=== PATIENT | female | born 1955 | race Caucasian/White ===

== ENCOUNTER 2017-10-01 00:46 | Inpatient (IN) | payer BC ==
[~2017-10-01] VITALS: Ht 170.2 cm; Wt 61.4 kg
[2017-10-01] VITALS (7 sets, daily range): BP systolic 118–163; BP diastolic 44–80
[~2017-10-01 00:46] MED LIST: CHOLINE PO; FERROUS SULFAT325 M2 PO; LEVOTHYROXIN0.075 M1 PO; MULTI-VITAMIN1 EACH PO
[2017-10-01] MEDS ORDERED: LISINOPRIL 10MG10 MG PO (00:55)
[2017-10-01] MEDS ORDERED: MAXZIDE 25 MG-31 TA1 PO (00:55)
[2017-10-01 01:06] LABS: HEMOGLOBIN 13.3 g/dL (12.2-16.2); LYMPH # 0.8 K/mm3 (0.7-4.5)
--- NOTE | 2017-10-01 01:26 | Emergency Room Report ---
History of Present Illness Time Seen by [id number] Presenting Problem in Triage Pt arrived:Walked Presenting Problem:C/O PAIN TO UPPER EPIGASTRIC AREA X 1 HOUR. 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 N Clinical Suspician of Infection? N Mental Status: 1 - Regular (Normal Baseline) Sepsis Risk:Low Sepsis Risk Have you (or family members/close friends) recently traveled outside the [place]? N If Yes, where/when: Have you had exposure to infectious disease within the past month? N TB? Other? Specify: Source patient, RN notes reviewed, family, old records Exam Limitations no limitations Comment pt with acute onset of upper abd pain with rad to back - no fever or vomiting and no etoh - Cardiac Chest Pain Chest pain indicative of cardiac No Timing/Duration this evening Severity moderate ALLERGIES Coded Allergies: Iodinated Contrast- Oral and IV Dye (Iodinated Contrast Media - IV Dye) (Severe, 10/18/15) Vodka (Severe, 03/24/11) Home Medications Reported Medications Levothyroxine Sodium (Levothyroxine 0.075MG) 0.05 MG PO DAILY LISINOPRIL (Lisinopril) 10 MG PO DAILY TRIAMTERENE/HYDROCHLOROTHIAZID (Maxzide 37.5 MG-25 MG Tablet) 1 TAB PO DAILY History Medical History General CAD? No Angina: Yes PA: No Hypertension? No Hyperlipidemia? Yes CHF? No DVT? No PE? No COPD? No Asthma? No Anemia? No GERD? No Gastric ulcers? No GI Bleed? No Hernia? No Thyroid Problems? Yes Hypothyroidism? Yes CVA? No Seizures? No Diabetes? No Renal Insuffiency? No End Stage Renal Disease? No UTI? Yes Stones? Yes BPH? No GB Disease: Yes Nephritic Syndrome? No Asplenia? No Hepatitis? No Sickle Cell Disease? No Arthritis? No Migraines? No Cataracts? No Glaucoma? No MRSA? No HIV? No TB? No Anxiety? No Depression? No Cancer? No More? No Immunization Hx DT/Tetanus UNKNOWN Flu 2YRSorMore Pneumonia NEVER Surgical Hx Previous Surgery?Y Tubal Ligation Gallbladd Hysterect HEART CATH 2006? Family History Family Hx Diabetes Yes CAD Yes Hypertension No Hyperlipidemia No Cancer No TB No Social History Smoking Hx Smoker: Former Smoker Tobacco: No Type N/A Alcohol Alcohol: No Drugs none Review of Systems All Other Systems Reviewed and Negative Constitutional denies fever Eyes denies drainage ENT denies: ear discharge, epistaxis, throat pain. Respiratory denies cough, denies shortness of breath, denies wheezing Cardiovascular denies chest pain, denies syncope Gastrointestinal see HPI, abdominal pain, diarrhea, nausea, vomiting Genitourinary denies: dysuria, frequency, hesitancy, hematuria. Musculoskeletal denies back pain, denies joint pain, denies joint swelling, denies neck pain Skin denies rash Psychiatric/Neurological denies headache, denies seizure Physical Exam Vital Signs Vital Signs Date Time Temp Pulse Resp B/P Pulse O2 O2 Flow FiO2 Ox Delivery Rate 10/01 0337 69 20 144/89 99 10/01 0248 73 20 152/65 99 10/01 0203 71 20 145/58 97 10/01 0119 69 20 127/58 96 10/01 0113 20 10/01 0048 98.3 74 18 163/80 98 - WBC >12,000 or <4,000 or 10% bands? 2 or more SIRS Criteria Met? B/P:144/89 MAP:107 Creatinine >2.0? UA output<0.5ml/kg/hr for 2 hrs? Platelet count >100,000? Lactate >2.0mmol/1? INR >1.2 or PTT > than 60 sec? Evidence of Organ Dysfunction? Provider documented clinical suspician of infection? N Sepsis Criteria Count: 0 Sepsis Risk: Low Sepsis Risk General Appearance no apparent distress Eye Exam - bilateral eye PERRL, bilateral eye EOMI Ear, Nose, Throat normal ENT inspection Neck supple Respiratory Status No: respiratory distress. Lung Sounds bilateral: lungs clear. Cardiovascular regular rate/rhythm, systolic murmur Peripheral Pulses Pulses normal Yes Gastrointestinal soft, no organomegaly, no pulsatile mass, no guarding, no rebound, tenderness Back no CVA tenderness Extremities normal inspection, no calf tenderness Strength 4 Upper Ext (L), 4 Upper Ext (R), 4 Lower Ext (L), 4 Lower Ext (R) Neurologic alert, evening sitter II-XII nml as tested, no motor/sensory deficits Reflexes Reflexes normal No Mental status normal mood/affect Skin no rash cons.w/shingles Medical Decision Making LABS/Meds/Orders Pt receiving controlled substance in ED? No Results/Orders Laboratory Tests 10/01/1749: Creatine Kinase 148, CK-MB (CK-2) Rel Index 0.5, CK and CKMB Interp 0.8, Troponin I < 0.02 10/01/170: Sodium 140, Potassium 3.7, Chloride 106, Carbon Dioxide 28, BUN 15, Creatinine 0.9, Estimated Creat Clear 66, Estimated GFR (MDRD) 63, Glucose 115 H, Calcium 9.4, Total Bilirubin 1.0, AST 59 H, ALT 45, Alkaline Phosphatase 105, Total Protein 7.5, Albumin 4.1, Globulin 3.4 H, Albumin/Globulin Ratio 1.2, Amylase 54, Lipase 789 H, WBC 4.8, RBC 4.83, Hgb 13.3, Hct 40.2, MCV 83.4, RDW 14.0, Plt Count 212, MPV 7.7, Gran % 73.9, Gran # 3.6, Lymphocytes % 17.0, Monocytes % 6.2, Eosinophils % 2.4, Basophils % 0.5, Lymphocytes # 0.8, Monocytes # 0.3, Eosinophils # 0.1, Basophils # 0.0, PUBS MCHC 33.0, MCH 27.5 Current Medication Orders Sig/Ramez Start time Last Medication Dose Route Stop Time Status Admin Sodium Chloride 50 ML .STK-MED ONE 10/01 334 DC IV Metronidazole 100 ML .STK-MED ONE 10/01 333 DC IV Levofloxacin/Dextrose 150 ML .STK-MED ONE 10/01 332 DC IV Promethazine HCl 0 .STK-MED ONE 10/01 332 DC .ROUTE Morphine Sulfate 0 .STK-MED ONE 10/01 331 DC .ROUTE Levofloxacin/Dextrose 150 ML ONCE ONE 10/01 330 r IV 10/01 459 Metronidazole 100 ML ONCE ONE 10/01 330 AC IV 10/01 429 Morphine Sulfate 4 MG ONCE ONE 10/01 330 DC IV 10/01 331 Morphine Sulfate 0 .STK-MED ONE 10/01 330 DC .ROUTE Promethazine HCl 12.5 MG ONCE ONE 10/01 330 DC IV 11/01 0331 Sodium Chloride 25 ML ONCE ONE 10/01 0330 AC IV 10/01 0344 Famotidine 0 .STK-MED ONE 10/01 0130 DC IV Metoclopramide HCl 0 .STK-MED ONE 10/01 0129 DC .ROUTE Famotidine 20 MG ONCE ONE 10/01 0115 DC 10/01 IV 10/01 011 0131 Metoclopramide HCl 10 MG ONCE ONE 10/01 0115 DC 10/01 IVP 10/01 011 013 Sodium Chloride 8 ML ONCE ONE 10/01 011 DC 10/01 IV 10/01 011 0131 Ondansetron HCl 0 .STK-MED ONE 10/01 010 DC .ROUTE Sodium Chloride 1,000 ML .STK-MED ONE 10/01 010 DC IV Ketorolac 0 .STK-MED ONE 10/01 010 DC Tromethamine .ROUTE Ketorolac 30 MG ONCE ONE 10/01 010 DC 10/01 Tromethamine IV 10/01 010 0113 Ondansetron HCl 4 MG ONCE ONE 10/01 010 DC 10/01 IV 10/01 0101 0110 Sodium Chloride 10 ML PRN PRN 10/01 0100 AC IV 10/02 0057 Sodium Chloride 1,000 ML .Q1H1M 10/01 010 DC 10/01 IV 10/01 0200 0110 Sodium Chloride 10 ML PRN PRN 10/01 0100 AC IV 10/02 0058 Orders Procedure Date/time Status DIET-NOTHING BY MOUTH 10/01 B Active Decision to admit 10/[address] ABD & PELVIS W/O CONTRAST 10/01 115 Active CARDIAC ENZYMES 10/01 111 Complete 12 LEAD EKG-VERONICA (INITIAL) 10/01 59 Active ELECTROCARDIOGRAM REQUEST 10/[address] ABD/PELVIS REQ 10/01 59 Complete CHEST(2 VIEWS-NOT PORTABLE) 10/01 59 Active IV SALINE LOCK 10/01 005 Active LIPASE 10/01 005 Complete CBC WITH AUTO DIFF 10/01 59 Complete CHEM 12 PROFILE 10/01 59 Complete AMYLASE 10/01 59 Complete CM/EKG CM/community organization worker Rhythm Normal Sinus Rhythm EKG non-spec. ST/Twave chgs XRAY/CT/US XRAY/CT/US 1 XRAY chest XR interpretation by reviewed by me Xray Results normal/NAD XRAY/CT/US 2 CT abdomen, pelvis CT interpretation by discussed w/radiologist Time results known: 339 CT Results abnormal (see report) Departure Departure Time of Disposition 032 Disposition Still a Patient Clinical Impression Primary Impression: Pancreatitis, acute Qualifiers: Pancreatitis type: unspecified pancreatitis type Acute pancreatitis complication: unspecified Qualified Code: K85.90 - Acute pancreatitis without necrosis or infection, unspecified Secondary Impressions: Diverticulitis Qualifiers: Diverticulitis site: large intestine Diverticulitis bleeding: without bleeding Diverticulitis complication: without perforation or abscess Qualified Code: K57.32 - Diverticulitis of large intestine without perforation or abscess without bleeding Condition STABLE Referrals Qasim Olivera MD (Family) discussed with dr chrissy MARRERO Critical Care Critical Care No at [phone]
--- OUTSIDE RECORDS SUMMARY | 2017-10-01 01:43 | External Medical Summary Rpt ---
Author Author [facility] [employer]ong, [employer] Organization [employer] Address Unknown Phone Unavailable
--- OUTSIDE RECORDS SUMMARY | 2017-10-01 01:43 | External Medical Summary Rpt | CCD ---
Author Author [employer] Organization [employer] Address Unknown Phone Unavailable Purpose Continuity of Care Document - through 2016
--- OUTSIDE RECORDS SUMMARY | 2017-10-01 01:43 | External Medical Summary Rpt | CCD ---
Author Author [facility] Address Unknown Phone Purpose Continuity of Care Document - through 2016
--- OUTSIDE RECORDS SUMMARY | 2017-10-01 01:43 | External Medical Summary Rpt | CCD ---
Demographics Preferred Language Turkmen Marital Status Unknown Jew Affiliation Unknown Race Unknown Ethnic Group Unknown Author Author , MAITE ARORA Address Unknown Phone Immunization Unable to retrieve immunization data due to connection failure with Immunization Registry. Please try again later.
--- OUTSIDE RECORDS SUMMARY | 2017-10-01 01:43 | External Medical Summary Rpt | CCD ---
Demographics Preferred Language Kiswahili Marital Status Unknown Yazidism Affiliation Unknown Race Unknown Ethnic Group Unknown Author Author , MAITE ARORA Address Unknown Phone Immunization Unable to retrieve immunization data due to connection failure with Immunization Registry. Please try again later.
--- OUTSIDE RECORDS SUMMARY | 2017-10-01 03:37 | External Medical Summary Rpt | CCD ---
Author Author [facility] Address Unknown Phone Purpose Continuity of Care Document - 10-01-2017 through 2016
--- OUTSIDE RECORDS SUMMARY | 2017-10-01 03:38 | External Medical Summary Rpt | CCD ---
Demographics Preferred Language German Marital Status Unknown Orthodox Affiliation Unknown Race Unknown Ethnic Group Unknown Author Author , MAITE ARORA Address Unknown Phone Immunization Unable to retrieve immunization data due to connection failure with Immunization Registry. Please try again later.
--- OUTSIDE RECORDS SUMMARY | 2017-10-01 03:38 | External Medical Summary Rpt ---
Author Author [employer], [employer] Organization [employer] Address Unknown Phone Unavailable Results Amylase [Enzymatic activity/volume] in Serum or Plasma Observa Value Referen Units Interpr Notes Date tion ce etation Range Amylase 25 - 115 U/L Normal No Oct 01 [Enzymati informati 2017 c on in 12:50 AM activity/ source volume] data in Serum or Plasma Comprehensive metabolic 2000 panel in Serum or Plasma Observa Value Referen Units Interpr Notes Date tion ce etation Range Albumin/G 1.1 - 1.8 No Normal No Oct 01 lobulin informati informati 2016 [Mass on in on in 12:50 AM ratio] in source source Serum or data data Plasma Albumin 3.4 - 5.0 gm/dL Normal No Oct 01 [Mass/vol informati 2016 ume] in on in 12:50 AM Serum or source Plasma data Alkaline 46 - 116 U/L Normal No Oct 01 phosphata informati 2017 se on in 12:50 AM [Enzymati source c data activity/ volume] in Serum or Plasma Bilirubin 0.2 - 1.0 mg/dL Normal No Oct 01 .total informati 2016 [Mass/vol on in 12:50 AM ume] in source Serum or data Plasma Urea 7 - 18 mg/dL Normal No Oct 01 nitrogen informati 2016 [Mass/vol on in 12:50 AM ume] in source Serum or data Plasma Calcium 8.5 - mg/dL Normal No Oct 01 [Mass/vol 10.1 informati 2017 ume] in on in 12:50 AM Serum or source Plasma data Chloride 98 - 107 mmoL/L Normal No Oct 01 [Moles/vo informati 2017 lume] in on in 12:50 AM Serum or source Plasma data Carbon 21.0 - mmoL/L Normal No Oct 01 dioxide, 32.0 informati 2017 total on in 12:50 AM [Moles/vo source lume] in data Serum or Plasma Creatinin 0.55 - mg/dL Normal No Oct 01 e 1.02 informati 2017 [Mass/vol on in 12:50 AM ume] in source Serum or data Plasma Creatinin 50 - 200 ML/MIN Normal No Oct 1 e renal informati 2016 clearance on in 12:50 AM source predicted data by Cockcroft -Gault formula Estimated 59- ML/MIN No REFERENCE Nov informati RANGE: 2017 glomerula on in >60 12:50 AM r source ML/MIN/1. filtratio data 73 SQUARE n rate METERSIf (GF this patient is -A merican, then multiply theresult by 1.210. Globulin 1.3 - 3.2 gm/dL High No Oct 01 [Mass/vol informati 2016 ume] in on in 12:50 AM Serum source data Glucose 74 - 106 mg/dL High No Oct 01 [Mass/vol informati 2016 ume] in on in 12:50 AM Serum or source Plasma data Potassium 3.5 - 5.1 mmoL/L Normal No Oct 01 inform2016 [Moles/vo on in 12:50 AM lume] in source Serum or data Plasma Sodium 136 - 145 mmoL/L Normal No Oct 01 [Moles/vo informati 2016 lume] in on in 12:50 AM Serum or source Plasma data Aspartate 15 - 37 U/L High No Oct 01 inform2016 aminotran on in 12:50 AM sferase source [Enzymati data c activity/ volume] in Serum or Plasma Alanine 12 - 78 U/L Normal No Oct 01 aminotran 2016 sferase on in 12:50 AM [Enzymati source c data activity/ volume] in Serum or Plasma Protein 6.4 - 8.2 gm/dL Normal No Oct 01 [Mass/vol informati 2016 ume] in on in 12:50 AM Serum or source Plasma data Lipase [Enzymatic activity/volume] in Serum or Plasma Observa Value Referen Units Interpr Notes Date tion ce etation Range Lipase 73 - 393 U/L High Oct 01 [Enzymati NOTIFICAT 2016 c ION 12:50 AM activity/ RESULT volume] in Serum or Plasma CBC W Auto Differential panel in Blood Observa Value Referen Units Interpr Notes Date tion ce etation Range Basophils 0 - 0.2 K/MM3 Normal No Oct 01 inform2016 [#/volume on in 12:50 AM ] in source Blood by data Automated count Basophils 0.1 - 2.0 % Normal No Oct 01 inform2016 leukocyte on in 12:50 AM s in source Blood by data Automated count Eosinophi 0.0 - 0.4 K/mm3 Normal No Oct 1 ls informati 2016 [#/volume on in 12:50 AM ] in source Blood by data Automated count Eosinophi 0.1 - % Normal No Oct 1 ls/100 12.0 inform2016 leukocyte on in 12:50 AM s in source Blood by data Automated count Granulocy 1.8 - 7.8 K/mm3 Normal No Oct 1 sade inform2016 [#/volume on in 12:50 AM ] in source Blood by data Automated count Granulocy 37.0 - % Normal No Oct 1 sade/100 80.0 informati 2016 leukocyte on in 12:50 AM s in source Blood by data Automated count Hematocri 37.0 - % Normal No Oct 01 t [Volume 47.0 informati 2016 on in 12:50 AM Fraction] source of Blood data Hemoglobi 12.2 - g/dL Normal No Oct 01 n 16.2 informati 2016 [Mass/vol on in 12:50 AM ume] in source Blood data Lymphocyt 0.7 - 4.5 K/mm3 Normal No Oct 01 es inform2016 [#/volume on in 12:50 AM ] in source Unspecifi data ed specimen by Automated count Lymphocyt 10 - 50.0 % Normal No Oct 01 es 2016 [#/volume on in 12:50 AM ] in source Unspecifi data ed specimen by Automated count Erythrocy 27 - 31.2 pg Normal No Oct 01 te mean 2016 corpuscul on in 12:50 AM ar source hemoglobi data n [Entitic mass] Erythrocy 31.8 - g/dl Normal No Oct 01 te mean 35.4 inform2016 corpuscul on in 12:50 AM ar source hemoglobi data n concentra tion [Mass/vol ume] by Automated count Erythrocy 82.2 - fl Normal No Oct 01 te mean 97.8 inform2016 corpuscul on in 12:50 AM ar volume source [Entitic data volume] by Automated count Monocytes 0.1 - 1.0 K/mm3 Normal No Oct 012016 [#/volume on in 12:50 AM ] in source Blood by data Automated count Monocytes 1.7 - 9.3 % Normal No Oct 01 2016 leukocyte on in 12:50 AM s in source Blood by data Automated count Platelet 7.4 - fl Normal No Oct 01 mean 10.4 2016 volume on in 12:50 AM [Entitic source volume] data in Blood by Automated count Platelets 142 - 424 K/mm3 Normal No Oct 012016 [#/volume on in 12:50 AM ] in source Blood data Erythrocy 4.2 - 5.4 M/mm3 Normal No Oct 01 sade 2016 [#/volume on in 12:50 AM ] in source Amniotic data fluid Erythrocy 11.5 - % Normal No Oct 01 te 17.5 2016 distribut on in 12:50 AM ion width source [Entitic data volume] by Automated count Leukocyte 4.8 - K/MM3 Normal No Oct 01 s 10.8 2016 [#/volume on in 12:50 AM ] in source Blood data
--- OUTSIDE RECORDS SUMMARY | 2017-10-01 03:38 | External Medical Summary Rpt | CCD ---
Demographics Preferred Language Polish Marital Status Unknown Mu-Ism Affiliation Unknown Race Unknown Ethnic Group Unknown Author Author , MIATE ARORA Address Unknown Phone Immunization Unable to retrieve immunization data due to connection failure with Immunization Registry. Please try again later.
--- NOTE | 2017-10-01 05:34 | RADIOLOGY REPORT PS360 ---
CHEST(2 VIEWS-NOT PORTABLE) HISTORY: C/O PAIN TO CHEST ORDERING PHYSICIAN: Qasim Olivera MD PATIENT AGE: 61 years COMPARISON: 03/23/2011 FINDINGS: The cardiomediastinal silhouette and pulmonary vascularity are within normal limits. COPD. There is an ill-defined opacity in the right mid to lower lung zone overlying the sixth rib anteriorly possibly due to summation artifact versus underlying nodular opacity. This measures approximately 8 mm. Is could even be due to overlying rib sclerosis. No lobar consolidation or collapse. On the lateral view there is calcified granuloma overlying the lower thoracic spine. No lobar consolidation or collapse.. No acute bony abnormalities. IMPRESSION: 1. 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 2. No acute finding. 3. Possible developing nodule right lower lobe. Follow-up radiograph may confirm
--- NOTE | 2017-10-01 05:43 | RADIOLOGY REPORT PS360 ---
CT ABD PELVIS W/O CONTRAST CLINICAL INDICATION: Abdominal pain, epigastric pain C/O OF EPIGASTRIC PAIN ORDERING PHYSICIAN: Qasim Olivera MD PATIENT AGE: 61 years COMPARISON: None TECHNIQUE: Axial images obtained with sagittal and coronal reformats. PROCEDURE: Oral Contrast: None IV Contrast: None . FINDINGS: Lower thorax: No acute finding ABDOMEN: Liver: 1.7 cm isodensity central aspect right hepatic lobe which may be due to a hepatic cyst. Gallbladder: Cholecystectomy. No ductal dilatation Pancreas: No masses or peripancreatic fluid collections. Spleen: Unremarkable. Adrenals: Unremarkable Kidneys/ureters: No masses. No renal calculi. No hydronephrosis. No perinephric fluid collections. No ureteral dilatation or obvious ureteral calculi. Stomach bowel: .Diverticulosis of the sigmoid colon. There is some minimal adjacent stranding of the fat in the left aspect of the pelvis. It is uncertain whether this is due to some mild diverticulitis or postsurgical stranding from the prior hysterectomy. There are no previous studies available for comparison. Correlation with clinical parameters needed. Repeat study with IV and oral contrast may be of further value Appendix: No evidence of appendicitis. PELVIS: Reproductive: Status post hysterectomy Bladder: Nondistended. No obvious stones or masses. ABDOMEN & PELVIS: Peritoneum: There is some mild stranding of the fat in the left lower quadrant. This is adjacent to the pelvic sidewall and sigmoid colon. Etiology is indeterminate. This could be related to sequela from mild diverticulitis. No abscess. Repeat study with IV and oral contrast may be of further value. Lymph nodes: No enlarged lymph nodes apparent. Vasculature: Scattered small nodes in the retroperitoneum Bones: No acute fracture IMPRESSION: 1. Diverticulosis of the sigmoid colon. There is some minimal adjacent stranding of the fat in the left aspect of the pelvis. It is uncertain whether this is due to some mild diverticulitis or postsurgical stranding from the prior hysterectomy. There are no previous studies available for comparison. Correlation with clinical parameters needed. Repeat study with IV and oral contrast may be of further value. 2. Probable liver cyst which could be confirmed with ultrasound
[2017-10-01 06:58] LABS: LYMPH # 0.6 K/mm3 (0.7-4.5); LYMPH % 16.8 % (10-50.0)
--- NOTE | 2017-10-01 07:32 | PHARMACY CLINIC NOTE ---
Patient Demographics Patient Demographics Admission date: 10/01/17 Date: 10/01/17 Time: 0731 Allergies Coded Allergies: Iodinated Contrast- Oral and IV Dye (Iodinated Contrast Media - IV Dye) (Severe, 10/18/15) Vodka (Severe, 03/24/11) HEIGHT- FT: 5 IN: 7.00 K.377 VTE General Information Labs: Laboratory Tests 10/01 10/01 0630 0050 Hematology Hgb (12.2 - 16.2 g/dL) 12.0 L 13.3 Hct (37.0 - 47.0 %) 35.8 L 40.2 Plt Count (142 - 424 K/mm3) 188 212 Disclaimer The following section includes nursing documentation that has been pulled in for pharmacy review. Patient's VTE score: 2 Patient's VTE Risk: VERY LOW RISK Clinical trial participant? No VTE prophylaxis NQF [id number] VTE prophylaxis ordered? Yes Type of prophylaxis/treatment: KUSHAL at 0731
[2017-10-01 07:59] LABS: BUN 11 mg/dL (7-18); GFR (ESTIMATED) 63 ML/MIN (59-)
--- NOTE | 2017-10-01 08:39 | HISTORY AND PHYSICAL REPORT ---
History and Physical ([facility]CA) Date of admission: 10/01/17 Chief complaint: abdominal pain History: History of Present Illness: Ms Pugh is a 61 year old female with a history of hypothyroidism, hyperlipidemia, and MVP who presented to [facility] ER after experiencing severe RUQ abdominal pain last PM. She states that she had watery diarrhea all day and stayed in the bed. She then began with the right UQ pain which went through to her back. She did vomit which made her feel better but then the pain began again. After 1 hour of the severe pain she went to the ER. In the ER CT scan showed possible diverticulitis. Lipase was elevated. She received IV Metoclopramide, Famotidine, Ketorolac, Zofran, Phenergan and Morphine. Her pain resolved after this. She was admitted for further evaluation and treatment. This AM she remains pain free. She is not nauseated and will try her clear liquid diet. To note: her family all had nausea, vomiting and diarrhea over the weekend. She felt fine on Friday and the diarrhea began on Friday. Past Medical History: Medical History: CAD? No Angina: No OH: No Hypertension? No Hyperlipidemia? Yes CHF? No DVT? No PE? No COPD? No Asthma? No Anemia? No GERD? Yes Gastric ulcers? Yes GI Bleed? No Hernia? No Thyroid Problems? Yes Hypothyroidism? Yes CVA? No Seizures? No Diabetes? No Renal Insuffiency? No UTI? Yes Stones? Yes BPH? No GB Disease: Yes Nephritic Syndrome? No Asplenia? No Hepatitis? No Sickle Cell Disease? No Arthritis? No Migraines? No Cataracts? No Glaucoma? No MRSA? No HIV? No TB? No Anxiety? No Depression? No Cancer? No More? No Additional hx: MVP with palpitations Surgical history: Previous Surgery?Y Tubal Ligation [place] Hysterect HEART CATH 2006? Medications: Reported Medications Levothyroxine Sodium (Levothyroxine 0.075MG) 0.05 MG PO DAILY LISINOPRIL (Lisinopril) 5 MG PO DAILY TRIAMTERENE/HYDROCHLOROTHIAZID (Maxzide 37.5 MG-25 MG Tablet) 1 TAB PO DAILY Allergies: Coded Allergies: Iodinated Contrast- Oral and IV Dye (Iodinated Contrast Media - IV Dye) (Severe, 10/18/15) Vodka (Severe, 04/24/11) Family History: Family history: Postive for: CAD, DM. Social History: Smoking Hx Tobacco: No Smoker: Former Smoker Type: N/A Packs/day: N/A Are you exposed to second hand No Alcohol: Alcohol: No Hx of Drug Use: Drug Use? No Patient's occupation: now working 10 hour days 7 days a week Review of Systems: ENT Positive for: sinus problems. No: ear ache, sore throat. Respiratory No: shortness of air, non-productive, productive cough (sputum). GI Positive for: GERD, abdominal pain, diarrhea, nausea, vomitting. No: constipation, hematemeis, hematochezia, melena. (female) No: frequency, hematuria. Musculoskeletal No: extremity pain, joint pain. Physical Exam: Vital signs: 1ST Vital Signs Result Date Time Pulse Ox 98 10/01 48 B/P 163/80 10/01 48 Temp 98.3 10/01 48 Pulse 74 10/01 48 Resp 18 10/01 48 O2 Delivery ROOM AIR 10/01 0420 Exam: General appearance: alert, active, no acute distress, well-developed, well- nourished Eyes: anicteric, pupils reactive to light ENT: mucous membranes moist, pharynx normal Neck: no carotid bruit, full range of motion, lymphadenopathy (absent), thyroid (normal) Cardiovascular: regular rate & rhythm Respiratory: clear to auscultation (bilat anterior and posterior) ABD: soft, no guarding, no organomegaly, bowel sounds present, tenderness ( epigastric) Lab data: Labs: Laboratory Tests 10/01/17 0630: Sodium 141, Potassium 3.8, Chloride 109 H, Carbon Dioxide 28, BUN 11, Creatinine 0.9, Estimated Creat Clear 62, Estimated GFR (MDRD) 63, Glucose 108 H, Calcium 8.6, Total Bilirubin 0.9, AST 127 H, ALT 101 H, Alkaline Phosphatase 110, Troponin I < 0.02, Total Protein 6.3 L, Albumin 3.2 L, Globulin 3.1, Albumin/Globulin Ratio 1.0 L, Lipase 2368 H, WBC 3.6 L, RBC 4.24, Hgb 12.0 L, Hct 35.8 L, MCV 84.4, RDW 13.9, Plt Count 188, MPV 8.0, Gran % 74.4, Gran # 2.7, Lymphocytes % 16.8, Monocytes % 7.3, Eosinophils % 1.1, Basophils % 0.5, Lymphocytes # 0.6 L, Monocytes # 0.3, Eosinophils # 0.0, Basophils # 0.0, PUBS MCHC 33.5, MCH 28.3 10/01/170: Creatine Kinase 148, CK-MB (CK-2) Rel Index 0.5, CK and CKMB Interp 0.8, Troponin I < 0.02 10/01/1749: Triglycerides 168, Cholesterol 207 H, LDL Cholesterol 127.4, VLDL Cholesterol 33.6, HDL Cholesterol 46.0 10/01/1749: Sodium 140, Potassium 3.7, Chloride 106, Carbon Dioxide 28, BUN 15, Creatinine 0.9, Estimated Creat Clear 66, Estimated GFR (MDRD) 63, Glucose 115 H, Calcium 9.4, Total Bilirubin 1.0, AST 59 H, ALT 45, Alkaline Phosphatase 105, Total Protein 7.5, Albumin 4.1, Globulin 3.4 H, Albumin/Globulin Ratio 1.2, Amylase 54, Lipase 789 H, WBC 4.8, RBC 4.83, Hgb 13.3, Hct 40.2, MCV 83.4, RDW 14.0, Plt Count 212, MPV 7.7, Gran % 73.9, Gran # 3.6, Lymphocytes % 17.0, Monocytes % 6.2, Eosinophils % 2.4, Basophils % 0.5, Lymphocytes # 0.8, Monocytes # 0.3, Eosinophils # 0.1, Basophils # 0.0, PUBS MCHC 33.0, MCH 27.5 Radiology results: Results: CXR 10/01/17 IMPRESSION: 1. 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 2. No acute finding. 3. Possible developing nodule right lower lobe. Follow-up radiograph may confirm 10/01/17 CT of abdomen and pelvis IMPRESSION: 1. Diverticulosis of the sigmoid colon. There is some minimal adjacent stranding of the fat in the left aspect of the pelvis. It is uncertain whether this is due to some mild diverticulitis or postsurgical stranding from the prior hysterectomy. There are no previous studies available for comparison. Correlation with clinical parameters needed. Repeat study with IV and oral contrast may be of further value. 2. Probable liver cyst which could be confirmed with ultrasound Diagnosis(es): 1. Pancreatitis, acute 2. Diverticulitis 3. Hyperlipidemia 4. HTN (hypertension) Plan: Lipase increased to 2368 and LFT are elevated this AM. Amylase is pending. Tolerated clear liquids this AM; Will continue with ABX and IVF for now at 0839
[2017-10-02 04:30] VITALS: BP 147/69
[2017-10-02 06:04] LABS: HEMOGLOBIN 11.3 g/dL (12.2-16.2); LYMPH # 1.1 K/mm3 (0.7-4.5); LYMPH % 43.3 % (10-50.0)
[2017-10-02 07:41] VITALS: BP 156/63
--- NOTE | 2017-10-02 08:31 | ACUTE CARE PROGRESS NOTE (QUA) ---
See Addendum Progress Notes Subjective Date 10/02/17 Time 0827 Note Patient has a little more pain today in the epigastric area but is anxious to go home. No nausea or vomiting. She ate some jello this am. Slept well. Objective Findings Last VS-Temp:98.0 B/P:156/63 Pulse:66 Resp:18 SaO2:99 ROOM AIR Last weight lbs:135 oz:5 K.377 Method:Bed Scales Laboratory Tests 10/02/17 0530: Sodium 141, Potassium 3.5, Chloride 108 H, Carbon Dioxide 26, BUN 8, Creatinine 0.9, Estimated Creat Clear 62, Estimated GFR (MDRD) 63, Glucose 92, Calcium 8.7 10/02/17 0530: Amylase 39, Lipase 78, WBC 2.7 L, RBC 4.12 L, Hgb 11.3 L, Hct 34.8 L, MCV 84.4, RDW 13.8, Plt Count 194, MPV 7.9, Gran % 40.7, Gran # 1.1 L, Lymphocytes % 43.3, Monocytes % 9.7 H, Eosinophils % 5.5, Basophils % 0.8, Lymphocytes # 1.1, Monocytes # 0.3, Eosinophils # 0.2, Basophils # 0.0, PUBS MCHC 32.4, MCH 27.3 Exam General appearance: alert, awake, no acute distress Cardiovascular: regular rate & rhythm Respiratory: clear to auscultation ABD: non-distended, normal bowel sounds, no rebound, soft, no guarding, ttp in the epigastric area Extremities: no peripheral edema Assessment/Plan Problem List 1. Pancreatitis, acute 2. Diverticulitis 3. Hyperlipidemia 4. HTN (hypertension) Plan: Pancreatic enyzmes are normal today. Possible discharge home on a bland diet and abx for diverticulitis. This inpt stay is expected to cross 2 MNs from start of care No at 0831 at 1003
[2017-10-02 09:00] VITALS: BP 156/63
[2017-10-02 11:03] LABS: NEUTROPHILS 41 % (42-76)
[2017-10-02] MEDS ORDERED: LEVSIN-SL0.125 MG SL (13:10)
[2017-10-02 13:50] VITALS: BP 156/63
--- NOTE | 2017-10-06 13:19 | DISCHARGE SUMMARY STANDARD ---
Discharge Summary (FCA2) Date of admission: 10/01/17 Date of discharge: 10/02/17 Problem List: 1. Pancreatitis, acute 2. Diverticulitis 3. Hyperlipidemia 4. HTN (hypertension) History of present illness: Ms Pugh is a 61 year old female with a history of hypothyroidism, hyperlipidemia, and MVP who presented to [facility] ER after experiencing severe RUQ abdominal pain. She stated that she had watery diarrhea all day and stayed in the bed. She then began with the right UQ pain which went through to her back. She did vomit which made her feel better but then the pain began again. After 1 hour of the severe pain she went to the ER. In the ER CT scan showed possible diverticulitis. Lipase was elevated. She received IV Metoclopramide, Famotidine, Ketorolac, Zofran, Phenergan and Morphine. Her pain resolved after this. She was admitted for further evaluation and treatment. Exam on admission: General appearance: alert, active, no acute distress, well-developed, well- nourished Eyes: anicteric, pupils reactive to light ENT: mucous membranes moist, pharynx normal Neck: no carotid bruit, full range of motion, lymphadenopathy (absent), thyroid (normal) Cardiovascular: regular rate & rhythm Respiratory: clear to auscultation (bilat anterior and posterior) ABD: soft, no guarding, no organomegaly, bowel sounds present, tenderness ( epigastric) Hospital Course: The patient was started on abx and IVF's. By the next day she was feeling better and her LFT's and pancreatic enzymes had improved. Her diet was advanced and she tolerated this well. She was anxious to get home and was stable to be discharged on continued abx. She will need f/u with GI. Discharge medications: Continue taking these medications: Levothyroxine Sodium (Levothyroxine 0.075MG) 75 MCG TABLET 0.05 MILLIGRAM ORAL DAILY LISINOPRIL (Lisinopril) 10 MG TABLET 5 MILLIGRAM ORAL DAILY TRIAMTERENE/HYDROCHLOROTHIAZID (Maxzide 37.5 MG-25 MG Tablet) 1 EACH TABLET 1 TABLET ORAL DAILY Start taking the following new medications: Hyoscyamine Sulfate (Levsin-Sl) 0.125 MG TAB.SUBL 0.125 MILLIGRAM SUBLINGUAL QID, PRN Qty = 60 No Refills Disposition: F/U with: Qasim Olivera MD Follow up: 7 DAYS Activity: Cont Current activity Diet: [place] Discharge to: HOME Agency needed? N at 1554
== END 2017-10-02 13:50 | disposition home or self-care (01) | DRG 439 ==
LOC: ER 00:46 → 2ND 03:34 → ER 03:34 → 2ND 04:12
PROVIDERS: Emergency Medicine
DX: K85.90 Acute pancreatitis without necrosis or infection, unspecified (principal); K57.92 Diverticulitis of intestine, part unspecified, without perforation or abscess without bleeding; I10 Essential (primary) hypertension
CPT/HCPCS: J2405